=== PATIENT | female | born 1995 ===

== ENCOUNTER 2023-04-05 19:45 | Emergency (ER) | payer OTHER ==
[2023-04-05] MEDS ORDERED: KETOROLAC 15 MG/ML 1 ML VIAL IM STA (20:32)
--- NOTE | 2023-04-05 20:34 | ED ---
General Adult HPI - General Chief complaint: Extremity Injury, Upper Stated complaint: Right Hand Injury Time Seen by Provider: 04/05/23 20:33 Source: patient Mode of arrival: ambulatory Limitations: no limitations - History of Present Illness Initial comments: 28-year-old female presents to the ED with a chief complaint of right hand injury. Patient states her today became frustrated and punched a metal pole. Now notes injury of her right hand. No other injuries at this time. - Related Data Allergies Allergy/AdvReac Type Severity Reaction Status Date / Time No Known Allergies Allergy Verified 04/05/23 20:18 Review of Systems ROS Statement: Those systems with pertinent positive or pertinent negative responses have been documented in the HPI. ROS Other: All systems not noted in ROS Statement are negative. Past Medical History Past Medical History: No Reported History Past Surgical History: No Surgical Hx Reported Smoking Status: Current every day smoker Past Alcohol Use History: None Reported Past Drug Use History: None Reported General Exam - General Exam Comments Initial Comments: Visual Physical Exam Vital signs reviewed General: Well-appearing, nontoxic, no acute distress. Head: Normocephalic, atraumatic Eyes: PERRLA, EOMI ENT: Airway patent Chest: Nonlabored breathing Skin: No visual rash, normal skin tone Neuro: Alert and oriented 3 Musculoskeletal: No gross abnormalities Limitations: no limitations General appearance: alert, in no apparent distress Neck exam: Present: normal inspection Respiratory exam: Present: normal lung sounds bilaterally Cardiovascular Exam: Present: regular rate, normal rhythm GI/Abdominal exam: Present: soft Extremities exam: Present: other (Strength and Sensation equal and intact in bilateral upper extremities. Patient does have some tenderness to palpation along the lateral aspect of her right hand however no snuffbox tenderness to palpation. Radial pulses 2+) Course Vital Signs 04/05/23 20:15 Temperature 97.9 F Pulse Rate 61 Respiratory 18 Rate Blood Pressure 111/75 O2 Sat by Pulse 100 Oximetry Medical Decision Making - Medical Decision Making Was pt. sent in by a medical professional or institution (ALESSANDRA Olvera, PIN [employer]TER, urgent care, hospital, or half-way...) When possible be specific @ -No Did you speak to anyone other than the patient for history (EMS, parent, family, police, friend...)? What history was obtained from this source @ -No Did you review nursing and triage notes (agree or disagree)? Why? @ -I reviewed and agree with nursing and triage notes Were old charts reviewed (outside hosp., previous admission, EMS record, old EKG, old radiological studies, urgent care reports/EKG's, half-way records)? Report findings @ -No old charts were reviewed Differential Diagnosis (chest pain, altered mental status, abdominal pain women, abdominal pain men, vaginal bleeding, weakness, fever, dyspnea, syncope, headache, dizziness, GI bleed, back pain, seizure, CVA, palpatations, mental health, musculoskeletal)? @ -Differential Musculoskeletal Muscular strain, contusion, ligament sprain, fracture, arthritis, septic arthritis, bursitis, cellulitis, muscle spasm, nerve compression, DVT, arterial occlusion, herpes zoster, electrolyte abnormality, tumor.... This is not meant to be in all inclusive list EKG interpreted by me (3pts min.). @ -As above X-rays interpreted by me (1pt min.). @ -X-ray interpreted by me showing no evidence of acute findings. CT interpreted by me (1pt min.). @ -None done U/S interpreted by me (1pt. min.). @ -None done What testing was considered but not performed or refused? (CT, X-rays, U/S, labs)? Why? @ -None What meds were considered but not given or refused? Why? @ -None Did you discuss the management of the patient with other professionals (professionals i.e. , PA, PIN SETTER, lab, RT, psych nurse, elementary school social worker, foam charger, teacher, crime prevention police officer, rn case management)? Give summary @ -No Was smoking cessation discussed for >3mins.? @ -No Was critical care preformed (if so, how long)? @ -No Were there social determinants of health that impacted care today? How? (Homelessness, low income, unemployed, alcoholism, drug addiction, transportation, low edu. Level, literacy, decrease access to med. care, skilled nursing, rehab)? @ -No Was there de-escalation of care discussed even if they declined (Discuss DNR or withdrawal of care, Hospice)? DNR status @ -No What co-morbidities impacted this encounter? (DM, HTN, Smoking, COPD, CAD, Cancer, CVA, ARF, Chemo, Hep., AIDS, mental health diagnosis, sleep apnea, morbid obesity)? @ -None Was patient admitted / discharged? Hospital course, mention meds given and route, prescriptions, significant lab abnormalities, going to OR and other pertinent info. @ -Discharge 28-year-old female presenting to the ED with complaints of right hand pain after punching a metal pole. X-ray of the hand revealed no evidence of fracture or other acute finding. Discharged home in stable condition with instructions to follow up with her PCP. Undiagnosed new problem with uncertain prognosis? @ -No Drug Therapy requiring intensive monitoring for toxicity (Heparin, Nitro, Insulin, Cardizem)? @ -No Were any procedures done? @ -No Diagnosis/symptom? @ -Right hand pain Acute, or Chronic, or Acute on Chronic? @ -Acute Uncomplicated (without systemic symptoms) or Complicated (systemic symptoms)? @ -Uncomplicated Side effects of treatment? @ -No Exacerbation, Progression, or Severe Exacerbation? @ -No Poses a threat to life or bodily function? How? (Chest pain, [place], [place], pneumonia, PE, COPD, DKA, ARF, appy, cholecystitis, CVA, Diverticulitis, Homicidal, Suicidal, threat to staff... and all critical care pts) @ -No Disposition Clinical Impression: Hand pain Disposition: HOME SELF-CARE Condition: Good Additional Instructions: Please return to the Emergency Department if symptoms worsen or any other concerns. Please follow up with your PCP. Is patient prescribed a controlled substance at d/c from ED?: No Referrals: Nonstaff,Physician [Primary Care Provider] - 1-2 days Time of Disposition: 23:49
[2023-04-05 20:38] VITALS: BP 111/75; PULSE 61; RESP 18; TEMP 97.9
--- NOTE | 2023-04-05 22:33 | XR ---
EXAMINATION TYPE: XR hand complete RT DATE OF EXAM: 04/05/2023 8:54 PM CLINICAL INDICATION:Female, 28 years old with history of pain; [facility] COMPARISON: None TECHNIQUE: 3 views of the right hand. FINDINGS: Osseous mineralization appears appropriate. No destructive bony lesion. No acute fracture or dislocat ion. Suggest mild deformity of the mid to distal shaft of the fifth metacarpal, nonacute appearance a nd could be sequela of remote traumatic injury. Joint spaces are maintained. Unremarkable soft tissue s. No radiopaque foreign body is seen. IMPRESSION: No evidence of fracture or dislocation.
== END 2023-04-05 23:07 | disposition home or self-care (01) ==
LOC: EC 19:45
DX: M79.641 Pain in right hand (principal); F17.200 Nicotine dependence, unspecified, uncomplicated; W22.09XA Striking against other stationary object, initial encounter
CPT/HCPCS: 73130; 99283; 96372; J1885